=== PATIENT | female | born 1990 | race Caucasian/White ===

== ENCOUNTER 2020-12-14 11:51 | Inpatient (IN) | payer OTHER ==
[2020-12-14] MEDS ORDERED: Sodium Chloride 0.9% 10 ML Syringe FLUSH PRN (12:58)
[2020-12-14] MEDS ORDERED: Lactated Ringers 500 ML IV ONE (12:58)
[2020-12-14] MEDS ORDERED: Lactated Ringers 1,000 ML IV ONE (13:00)
--- NOTE | 2020-12-14 14:13 | PCM.LDHP ---
L&D History of Present Illness - General Date of Service: 12/14/20 Admit Problem/Dx: Patient Status Order with Admit Dx/Problem 12/14/20 12:58 Patient Status [ADT] Routine Admission Diagnosis/Problem Admission Diagnosis/Problem Term Source of Information: Patient History Limitations: Reports: No Limitations - History of Present Illness Introduction:: 12/14/20 Patient is a 30 yo [id number] at 37 2/7 weeks in active labor. She is here visiting and usually doctors in [place], [place]. Her PEBBLES is 01/02/21. Her has been complicated due to a bicornate uterus and diet controlled GDM. Her first baby was due to breech presentation, second baby was an unexplained stillbirth at 24 weeks, and then this current which has for the most part gone well. She has O negative blood type and received rhogam around 28 weeks. She is HIV/hep B/RPR/GBS all negative. We have not yet received records but according to her [facility] account we have gone over some results. SVE shows /3, baby is transverse baby's head to maternal left. Membranes intact. Her is driving from [facility] and will be here around 1600 so we are trying to wait to do her repeat until he gets here. If she progresses she understands she will need to go sooner. OR staff is aware. Timing/Duration: Reports: minutes: (2-5) Location, : Reports: Abdomen Severity: Moderate Pain Score: 5 Improves with: Reports: None Worsens with: Reports: None Associated Symptoms: Denies: vaginal bleeding, vaginal fluid - Related Data Allergies/Adverse Reactions: Allergies Allergy/AdvReac Type Severity Reaction Status Date / Time No Known Allergies Allergy Verified 12/14/20 12:25 Home Medications: Home Meds Aspirin [Halfprin] 1 tab PO DAILY 12/14/20 [History] Citalopram [Citalopram HBr] 1 tab PO DAILY 12/14/20 [History] Docusate Sodium [Colace] 1 tab PO DAILY 12/14/20 [History] Iron 1 tab PO DAILY 12/14/20 [History] No122/Iron/Folic Acid [ Multi Tablet] 1 tab PO DAILY 12/14/20 [History] 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: : 3 Para: 1 LMP (Approximate): Psychiatric History: Reports: Anxiety Hematologic History: Reports: Iron Deficiency - Infectious Disease History Infectious Disease History: Reports: Chicken Pox - Past Surgical History Other HEENT Surgeries/Procedures: wisdom teeth Social & Family History - Family History Family Medical History: No Pertinent Family History - Tobacco Use Tobacco Use Status *Q: Never Tobacco User Second Hand Smoke Exposure: No - Caffeine Use Caffeine Use: Reports: Coffee - Recreational Drug Use Recreational Drug Use: No H&P Review of Systems - Review of Systems: Review Of Systems: See Below General: Reports: No Symptoms HEENT: Reports: No Symptoms Pulmonary: Reports: No Symptoms Cardiovascular: Reports: No Symptoms Gastrointestinal: Reports: No Symptoms Genitourinary: Reports: No Symptoms Musculoskeletal: Reports: No Symptoms Skin: Reports: No Symptoms Psychiatric: Reports: No Symptoms Neurological: Reports: No Symptoms Hematologic/Lymphatic: Reports: No Symptoms Immunologic: Reports: No Symptoms L&D Exam - Exam Exam: See Below - Vital Signs Weight: 80.739 kg - OB Specific Contraction Intensity: Strong Movement: Active Heart Tones: Present Heart Rate (FHR) Variability: Moderate (6-25 bpm) Presentation: Transverse - Exam General: Alert, Oriented HEENT: PERRLA, Posterior Pharynx Clear, Pupils Equal, Pupils Reactive Neck: Supple, Trachea Midline Lungs: Clear to Auscultation, Normal Respiratory Effort Cardiovascular: Regular Rate, Regular Rhythm GI/Abdominal Exam: Normal Bowel Sounds, Soft Genitourinary: Normal external exam, Cervical dilitation, Enlarged uterus Back Exam: Normal Inspection, Full Range of Motion Extremities: Normal Inspection, No Pedal Edema Skin: Warm, Dry, Intact Neurological: Cranial Nerves Intact, Reflexes Equal Bilateral Psychiatric: Alert, Normal Affect, Normal Mood - Patient Data Lab Results Last 24 hrs: Laboratory Results - last 24 hr 12/14/20 12/14/20 12/14/20 Range/Units 12:07 12:58 13:17 WBC 7.8 (4.5-11.0) K/uL RBC 3.93 (3.30-5.50) M/uL Hgb 11.9 L (12.0-15.0) g/dL Hct 35.1 L (36.0-48.0) % MCV 89 (80-98) fL MCH 30 (27-31) pg MCHC 34 (32-36) % Plt Count 217 (150-400) K/uL Urine Color Yellow (YELLOW) Urine Appearance Cloudy A (CLEAR) Urine pH 7.0 (5.0-8.0) Ur Specific Pray 1.025 (1.008-1.030) Urine Protein Trace H (NEGATIVE) mg/dL Urine Glucose (UA) Negative (NEGATIVE) mg/dL Urine Ketones Negative (NEGATIVE) mg/dL Urine Occult Blood Small H (NEGATIVE) Urine Nitrite Negative (NEGATIVE) Urine Bilirubin Negative (NEGATIVE) Urine Urobilinogen 1.0 (0.2-1.0) EU/dL Ur Leukocyte Esterase Trace H (NEGATIVE) Urine RBC 0-5 (0-5) Urine WBC 0-5 (0-5) Ur Epithelial Cells Many Amorphous Sediment Rare Urine Bacteria Many Urine Mucus Few Urine Opiates Screen Negative (NEGATIVE) Ur Oxycodone Screen Negative (NEGATIVE) Urine Methadone Screen Negative (NEGATIVE) Ur Propoxyphene Screen Negative (NEGATIVE) Ur Barbiturates Screen Negative (NEGATIVE) Ur Tricyclics Screen Negative (NEGATIVE) Ur Phencyclidine Scrn Negative (NEGATIVE) Ur Amphetamine Screen Negative (NEGATIVE) U Methamphetamines Scrn Negative (NEGATIVE) Urine MDMA Screen Negative (NEGATIVE) U Benzodiazepines Scrn Negative (NEGATIVE) U Cocaine Metab Screen Negative (NEGATIVE) U Marijuana (THC) Screen Negative (NEGATIVE) Blood Type Gel Antibody Screen 12/14/20 Range/Units 13:17 WBC (4.5-11.0) K/uL RBC (3.30-5.50) M/uL Hgb (12.0-15.0) g/dL Hct (36.0-48.0) % MCV (80-98) fL MCH (27-31) pg MCHC (32-36) % Plt Count (150-400) K/uL Urine Color (YELLOW) Urine Appearance (CLEAR) Urine pH (5.0-8.0) Ur Specific Pray (1.008-1.030) Urine Protein (NEGATIVE) mg/dL Urine Glucose (UA) (NEGATIVE) mg/dL Urine Ketones (NEGATIVE) mg/dL Urine Occult Blood (NEGATIVE) Urine Nitrite (NEGATIVE) Urine Bilirubin (NEGATIVE) Urine Urobilinogen (0.2-1.0) EU/dL Ur Leukocyte Esterase (NEGATIVE) Urine RBC (0-5) Urine WBC (0-5) Ur Epithelial Cells Amorphous Sediment Urine Bacteria Urine Mucus Urine Opiates Screen (NEGATIVE) Ur Oxycodone Screen (NEGATIVE) Urine Methadone Screen (NEGATIVE) Ur Propoxyphene Screen (NEGATIVE) Ur Barbiturates Screen (NEGATIVE) Ur Tricyclics Screen (NEGATIVE) Ur Phencyclidine Scrn (NEGATIVE) Ur Amphetamine Screen (NEGATIVE) U Methamphetamines Scrn (NEGATIVE) Urine MDMA Screen (NEGATIVE) U Benzodiazepines Scrn (NEGATIVE) U Cocaine Metab Screen (NEGATIVE) U Marijuana (THC) Screen (NEGATIVE) Blood Type O NEGATIVE Gel Antibody Screen Negative Result Diagrams: 12/14/20 13:17 - Problem List (1) Active labor at term SNOMED Code(s): 71526679 ICD Code: WKX6602 - Status: Acute Current Visit: Yes (2) History of delivery SNOMED Code(s): 298987853 ICD Code: Z98.891 - HISTORY OF UTERINE SCAR FROM PREVIOUS SURGERY Status: Acute Current Visit: Yes (3) Bicornate uterus SNOMED Code(s): 30694632 ICD Code: Q51.3 - BICORNATE UTERUS Status: Acute Current Visit: Yes Problem List Initiated/Reviewed/Updated: Yes Orders Last 24hrs: Active Orders 24 hr Category Date Time Status Patient Status [ADT] Routine ADT 12/14/20 12:58 Active Communication Order [RC] ASDIRECTED Care 12/14/20 12:58 Active Heart Tones [RC] PER UNIT ROUTINE Care 12/14/20 12:58 Active Notify Provider Vital Signs [RC] PRN Care 12/14/20 12:59 Active Notify Provider [RC] PRN Care 12/14/20 12:58 Active OB Check [OM.PC] Click to Edit Care 12/14/20 11:59 Ordered Up ad Marly [RC] ASDIRECTED Care 12/14/20 12:58 Active VTE/DVT Education [RC] Click to Edit Care 12/14/20 13:00 Active Vital Signs [RC] PER UNIT ROUTINE Care 12/14/20 12:58 Active Nothing Per Oral Diet [DIET] Diet 12/14/20 Lunch Active CORONAVIRUS COVID-19 YUNG [MOLEC] Routine Lab 12/14/20 13:18 Received PATIENT RETYPE [BBK] Routine Lab 12/14/20 13:17 Results TYPE AND SCREEN [BBK] Routine Lab 12/14/20 13:17 Results Sodium Chloride 0.9% [Saline Flush] Med 12/14/20 12:58 Active 10 ml FLUSH ASDIRECTED PRN DVT/VTE Prophylaxis Reflex [OM.PC] Routine Oth 12/14/20 12:58 Ordered Saline Lock Insert [OM.PC] Routine Oth 12/14/20 12:58 Ordered Resuscitation Status Routine Resus Stat 12/14/20 12:58 Ordered Medication Orders Sodium Chloride (Sodium Chloride 0.9% 10 Ml Syringe) 10 ml FLUSH ASDIRECTED PRN PRN Reason: Keep Vein Open Assessment/Plan Comment:: 12/14/20 Assessment: [id number] here at 37 2/7 weeks gestation in active labor A1GDM bicornate uterus GBS negative O negative blood type transverse baby Plan: Trying to await husbands arrival for delivery. Planning repeat section at [id number] today unless patient progresses before that, baby is transverse so the head is not pushing on her cervix although her contractions are very strong.
[2020-12-14] MEDS ORDERED: ePHEDrine 50 MG/ML SDV ONE (14:22)
[2020-12-14] MEDS ORDERED: Phenylephrine 1% 10 MG/ML SDV ONE (14:22)
[2020-12-14] MEDS ORDERED: Ondansetron 4 MG/2 ML SDV ONE (14:22)
[2020-12-14] MEDS ORDERED: Oxytocin 10 Units/1 ML SDV ONE ×2 (14:22→14:23)
[2020-12-14] MEDS ORDERED: Sodium Chloride 0.9% 20 ML ONE (14:22)
[2020-12-14] MEDS ORDERED: fentaNYL 100 MCG/2 ML SDV IVPUSH ONE (15:22)
[2020-12-14] MEDS ORDERED: Sodium Chloride 0.9% 10 ML ONE (17:11)
[2020-12-14] MEDS ORDERED: ceFAZolin 1 GM Vial ONE (17:11)
[2020-12-14] MEDS ORDERED: ePHEDrine 50 MG/ML SDV IVPUSH PRN (17:38)
[2020-12-14] MEDS ORDERED: Witch Hazel Medicated Pads 100/Jar TOP ONE (17:38)
[2020-12-14] MEDS ORDERED: Lanolin 100% Cream 40 GM Tube TOP ONE (17:38)
[2020-12-14] MEDS ORDERED: Naloxone 0.4 MG/ML SDV IVPUSH PRN (17:38)
[2020-12-14] MEDS ORDERED: diphenhydrAMINE 50 MG/ML SDV IVPUSH PRN (17:38)
[2020-12-14] MEDS ORDERED: Ondansetron 4 MG Tab.DIS PO PRN (17:38)
[2020-12-14] MEDS ORDERED: Benzocaine 20% Top Spray 56 GM Bottle TOP ONE (17:38)
[2020-12-14] MEDS ORDERED: Bisacodyl 10 MG Supp RECTAL PRN (17:38)
[2020-12-14] MEDS: Acetaminophen/HYDROcodone 325-5 MG Tab PO PRN ×2 (18:37→22:20)
[2020-12-14] MEDS: fentaNYL 100 MCG/2 ML SDV IVPUSH PRN ×2 (18:45→22:32)
[2020-12-14] MEDS ORDERED: Ketorolac 30 MG/ML SDV IVPUSH ONE (18:45)
[2020-12-14] MEDS ORDERED: Lactated Ringers 1,000 ML IV SCH (19:00)
[2020-12-14] MEDS ORDERED: Lanolin 100% Cream 40 GM Tube TOP PRN (20:40)
[2020-12-14] MEDS ORDERED: Witch Hazel Medicated Pads 100/Jar TOP PRN (20:53)
[2020-12-15] MEDS: fentaNYL 100 MCG/2 ML SDV IVPUSH PRN ×7 (00:22→18:19)
[2020-12-15] MEDS: Ibuprofen 800 MG Tab PO PRN ×3 (01:47→17:38)
[2020-12-15] MEDS: Acetaminophen/HYDROcodone 325-5 MG Tab PO PRN ×5 (02:47→20:21)
[2020-12-15] MEDS ORDERED: Benzocaine 20% Top Spray 56 GM Bottle TOP PRN (07:43)
--- NOTE | 2020-12-15 07:52 | OR ---
DATE OF PROCEDURE: 12/14/2020 SURGEON: Tyler Srinivasan MD PREOPERATIVE DIAGNOSIS: Failure to advance/history of . POSTOPERATIVE DIAGNOSIS: Failure to advance/history of . PROCEDURE: section with aftercare. TIMEKEEPING SUPERVISOR: Lizbet Santiago CNM. COMPLICATIONS: None. ANESTHETIC: Spinal. RISKS: Risks, benefits, alternatives, and limitations including but not limited to infection, bleeding, injury to abdominal structures, bowel, bladder, baby, chronic wounds and chronic pain were all explained to the patient and they wished to proceed. PROCEDURE IN DETAIL: The patient was placed in supine position. The previous Pfannenstiel type incision was opened with a 15 blade. This was carried down with electrocautery to and through the fascia. The linea alba was then opened sharply with Metzenbaum scissors. Muscle-spreading technique was used once the peritoneum was entered. Uterus was readily identified. This was noticed to be large and bicornuate. This was then opened bluntly. There was also some anterior placenta noted. The baby was known to be transverse in the bicornuate uterus with the head in the left upper quadrant. One arm was behind the head and the second arm was between the legs from the back. The baby was delivered with mild difficulty. The cord was clamped and subsequently cut. The placenta was then removed without difficulty. Pitocin was given. The uterus inspected for bleeding. It was controlled with direct pressure. The uterus was closed then with 3 layers of #1 Vicryl running suture x3. The abdomen was irrigated. Of note, the uterus closure with #1 suture in a running locked fashion. The abdomen is irrigated. Rectus muscles were reapproximated using 3-0 Vicryl suture. Fascia was closed with #1 Vicryl in a running suture x2. Subcutaneous tissues were closed with 3-0 Vicryl. Skin was closed with 4-0 Vicryl. The patient tolerated the procedure well. Tyler Srinivasan MD /[id number]
[2020-12-15] MEDS: Prenatal Multivitamin with Calcium/Folic Acid/Iron Tab PO SCH (09:34)
--- NOTE | 2020-12-15 10:35 | PN ---
DATE OF SERVICE: 12/15/2020 SUBJECTIVE: The patient is doing very well. Pain is controlled, although she is still having issues with pain. We both feel the pain adequate. No nausea, vomiting, shortness of breath, or chest pain. OBJECTIVE: VITAL SIGNS: Stable. CARDIOVASCULAR: Regular rhythm and rate. SKIN: Incision healing well. ASSESSMENT: Status post . PLAN: The patient will continue to work on diet and activity today. We will discontinue Schumacher catheter and she is okay to shower. Tyler Srinivasan MD /[id number]
[2020-12-15] MEDS: Simethicone 80 MG Tab.Chew PO PRN (20:21)
[2020-12-16] MEDS: Acetaminophen/HYDROcodone 325-5 MG Tab PO PRN ×5 (00:13→16:17)
[2020-12-16] MEDS: Ibuprofen 800 MG Tab PO PRN ×2 (04:12→12:18)
[2020-12-16] MEDS ORDERED: Docusate Sodium 100 MG Cap PO PRN (07:56)
[2020-12-16] MEDS ORDERED: Bisacodyl 5 MG Tab PO PRN (07:56)
[2020-12-16] MEDS ORDERED: Sennosides 8.6 MG Tab PO PRN (07:56)
[2020-12-16] MEDS: Simethicone 80 MG Tab.Chew PO PRN ×2 (07:57→12:18)
[2020-12-16] MEDS: Prenatal Multivitamin with Calcium/Folic Acid/Iron Tab PO SCH (08:13)
--- NOTE | 2020-12-16 09:12 | PCM.PNPP ---
- General Info Date of Service: 12/16/20 Functional Status: Reports: Pain Controlled, Tolerating Diet, Ambulating, Urinating - Review of Systems General: Reports: No Symptoms HEENT: Reports: No Symptoms Pulmonary: Reports: No Symptoms Cardiovascular: Reports: No Symptoms Gastrointestinal: Reports: Abdominal Pain (mild cramping), Other (No BM yet, not passing gas yet, BS present) Genitourinary: Reports: No Symptoms Musculoskeletal: Reports: No Symptoms Skin: Reports: No Symptoms Neurological: Reports: No Symptoms Psychiatric: Reports: No Symptoms - General Info Date of Service: 12/16/20 - Patient Data Vital Signs - Most Recent: Last Vital Signs Temp 97 F 12/16/20 07:50 Pulse 95 12/16/20 07:50 Resp 16 12/16/20 07:50 BP 107/66 12/16/20 07:50 Pulse Ox 95 12/16/20 07:50 Weight - Most Recent: 177 lb 15.984 oz Lab Results - Last 24 Hours: Laboratory Results - last 24 hr 12/14/20 Range/Units 21:31 Screen Negative Med Orders - Current: Current Medications Hydrocodone Bitart/Acetaminophen (Acetaminophen/Hydrocodone 325-5 Mg Tab) 1 tab PO Q4H PRN PRN Reason: Pain (moderate 4-6) Last Admin: 12/16/20 08:12 Dose: 1 tab Documented by: Benzocaine (Benzocaine 20% Top [place] 56 Gm Bottle) 0 gm TOP Q4H PRN PRN Reason: perianal area Bisacodyl (Bisacodyl 10 Mg Supp) 10 mg RECTAL BID PRN PRN Reason: Constipation Bisacodyl (Bisacodyl 5 Mg Tab) 5 mg PO Q12H PRN PRN Reason: Constipation Last Admin: 12/16/20 08:13 Dose: 5 mg Documented by: Diphenhydramine HCl (Diphenhydramine 50 Mg/Ml Sdv) 25 mg IVPUSH Q6H PRN PRN Reason: Itching or Nausea Docusate Sodium (Docusate Sodium 100 Mg Cap) 100 mg PO Q12H PRN PRN Reason: Constipation Last Admin: 12/16/20 08:13 Dose: 100 mg Documented by: Emollient Ointment (Lanolin 100% Cream 40 Gm Tube) 0 gm TOP ASDIRECTED PRN PRN Reason: apply topically to nipples Last Admin: 12/14/20 20:59 Dose: 1 applic Documented by: Fentanyl (Fentanyl 100 Mcg/2 Ml Sdv) 10 - 30 mcg IVPUSH Q1H PRN PRN Reason: Pain (severe 7-10) Last Admin: 12/15/20 18:19 Dose: 30 mcg Documented by: Lactated Ringer's (Ringers, Lactated) 1,000 mls @ 125 mls/hr IV ASDIRECTED [facility] Last Admin: 12/14/20 19:51 Dose: 125 mls/hr Documented by: Ibuprofen (Ibuprofen 800 Mg Tab) 800 mg PO Q8H PRN PRN Reason: mild pain or fever Last Admin: 12/16/20 04:12 Dose: 800 mg Documented by: Magnesium Hydroxide (Magnesium Hydroxide 400 Mg/5 Ml Susp 30 Ml Cup) 30 ml PO Q6H PRN PRN Reason: Constipation Naloxone HCl (Naloxone 0.4 Mg/Ml Sdv) 0.1 mg IVPUSH ASDIRECTED PRN PRN Reason: Respiratory Depression Ondansetron HCl (Ondansetron 4 Mg Tab.Dis) 8 mg PO Q6H PRN PRN Reason: Nausea/Vomiting Prenat Multivit/Heating Unit Installer/Iron/Folic Ac ( Multivitamin With Calcium/Folic Acid/Iron Tab) 1 each PO DAILY [facility] Last Admin: 12/16/20 08:13 Dose: 1 each Documented by: Senna (Sennosides 8.6 Mg Tab) 8.6 mg PO Q12H PRN PRN Reason: Constipation Simethicone (Simethicone 80 Mg Tab.Chew) 80 mg PO Q4H PRN PRN Reason: Gas Last Admin: 12/16/20 07:57 Dose: 80 mg Documented by: Sodium Chloride (Sodium Chloride 0.9% 10 Ml Syringe) 10 ml FLUSH ASDIRECTED PRN PRN Reason: Keep Vein Open Witch Jordyn (Witch Jordyn Medicated Pads 100/Jar) 1 pad TOP ASDIRECTED PRN PRN Reason: Hemorrhoids Last Admin: 12/14/20 21:00 Dose: 1 applic Documented by: Discontinued Medications Benzocaine (Benzocaine 20% Top [place] 56 Gm Bottle) 0 gm TOP Q4H ONE Stop: 12/14/20 17:39 Last Admin: 12/14/20 20:30 Dose: Not Given Documented by: Cefazolin Sodium (Cefazolin 1 Gm Vial) Confirm Administered Dose 2 gm .ROUTE .STK-MED ONE Stop: 12/14/20 17:12 Emollient Ointment (Lanolin 100% Cream 40 Gm Tube) 40 gm TOP ASDIRECTED ONE Stop: 12/14/20 17:39 Last Admin: 12/15/20 00:31 Dose: Not Given Documented by: Ephedrine Sulfate (Ephedrine 50 Mg/Ml Sdv) Confirm Administered Dose 50 mg .ROUTE .STK-MED ONE Stop: 12/14/20 14:23 Ephedrine Sulfate (Ephedrine 50 Mg/Ml Sdv) 5 mg IVPUSH ASDIRECTED PRN PRN Reason: Other Fentanyl (Fentanyl 100 Mcg/2 Ml Sdv) 50 mcg IVPUSH ONETIME ONE Stop: 12/14/20 15:23 Last Admin: 12/14/20 23:36 Dose: Not Given Documented by: Lactated Ringer's (Ringers, Lactated) 500 mls @ 500 mls/hr IV .BOLUS ONE Stop: 12/14/20 13:57 Last Admin: 12/14/20 15:48 Dose: 500 mls/hr Documented by: Sodium Chloride (Normal Saline) Confirm Administered Dose 20 mls @ as directed .ROUTE .STK-MED ONE Stop: 12/14/20 14:23 Lactated Ringer's (Ringers, Lactated) 1,000 mls @ 999 mls/hr IV BOLUS ONE Stop: 12/14/20 14:00 Last Admin: 12/14/20 14:00 Dose: 999 mls/hr Documented by: Sodium Chloride (Normal Saline) Confirm Administered Dose 10 mls @ as directed .ROUTE .STK-MED ONE Stop: 12/14/20 17:12 Ketorolac Tromethamine (Ketorolac 30 Mg/Ml Sdv) 30 mg IVPUSH ONETIME ONE Stop: 12/14/20 18:46 Last Admin: 12/14/20 18:56 Dose: 30 mg Documented by: Ondansetron HCl (Ondansetron 4 Mg/2 Ml Sdv) Confirm Administered Dose 4 mg .ROUTE .STK-MED ONE Stop: 12/14/20 14:23 Oxytocin (Oxytocin 10 Units/1 Ml Sdv) Confirm Administered Dose 20 unit .ROUTE .STK-MED ONE Stop: 12/14/20 14:23 Oxytocin (Oxytocin 10 Units/1 Ml Sdv) Confirm Administered Dose 10 unit .ROUTE .STK-MED ONE Stop: 12/14/20 14:24 Last Admin: 12/14/20 17:00 Dose: 10 unit Documented by: Phenylephrine HCl (Phenylephrine 1% 10 Mg/Ml Sdv) Confirm Administered Dose 10 mg .ROUTE .STK-MED ONE Stop: 12/14/20 14:23 Witch Jordyn (Witch Jordyn Medicated Pads 100/Jar) 1 pad TOP ASDIRECTED ONE Stop: 12/14/20 17:39 Last Admin: 12/15/20 00:31 Dose: Not Given Documented by: - Infant Interaction Disposition, : [place] in Room with Family Infant Interaction: Holding Infant Feeding: Breastfed Infant; Nursed Well Support Person: , Friend - Recovery Exam Fundal Tone: Firm Fundal Level: 1 Fingerbreadths Below Umbilicus Fundal Placement: Midline Lochia Amount: Small Lochia Color: Rubra/Red Perineum Description: Intact, Minimal Bruising/Swelling Episiotomy/Laceration: None Bladder Status: Voiding Urinary Elimination: Voided - Exam General: Alert, Oriented HEENT: Pupils Equal, Pupils Reactive, EOMI, Mucous Membr. Moist/[place] Neck: Supple Lungs: Clear to Auscultation, Normal Respiratory Effort Cardiovascular: Regular Rate, Regular Rhythm GI/Abdominal Exam: Normal Bowel Sounds, Soft Extremities: No Pedal Edema, Normal Capillary Refill Skin: Warm Wound/Incisions: Healing Well Neurological: No New Focal Deficit Psy/Mental Status: Alert, Normal Affect, Normal Mood - Problem List & Annotations (1) Status post SNOMED Code(s): 991704929, 043027800 Code(s): Z98.891 - HISTORY OF UTERINE SCAR FROM PREVIOUS SURGERY Status: Acute Current Visit: Yes (2) History of delivery SNOMED Code(s): 895106491 Code(s): Z98.891 - HISTORY OF UTERINE SCAR FROM PREVIOUS SURGERY Status: Acute Current Visit: Yes (3) Bicornate uterus SNOMED Code(s): 13604027 Code(s): Q51.3 - BICORNATE UTERUS Status: Acute Current Visit: Yes - Problem List Review Problem List Initiated/Reviewed/Updated: Yes - Assessment Assessment:: 12/16/20 S/P repeat C section for breech at 37 plus weeks Doing well up and about, voiding, No BM yet Had breakfast this morning without problem May go home this PM if has BM, if not tomorrow AM - Plan Plan:: 12/14/20 Assessment: [id number] here at 37 2/7 weeks gestation in active labor A1GDM bicornate uterus GBS negative O negative blood type transverse baby Plan: Trying to await husbands arrival for delivery. Planning repeat section at [phone] today unless patient progresses before that, baby is transverse so the head is not pushing on her cervix although her contractions are very strong. 12/16/20 Had Rhogam no problems with Up and active, walking Incision healing well plan to see Surgeon here if at cabin next week. If not to see regular OB provider in the [facility]. home this PM
[2020-12-16] MEDS: Magnesium Hydroxide 400 MG/5 ML Susp 30 ML Cup PO PRN ×2 (13:37→16:16)
== END 2020-12-16 17:00 | disposition home or self-care (01) | DRG 788 ==
LOC: JP.OBCHECK 11:51 → JP.OB 11:54 → JP.OBCHECK 12:58 → OBSVTOIN 17:07 → JP.MS 20:25
PROVIDERS: ADMIT Advanced Practice Midwife; ATTEND Advanced Practice Midwife
PROC: 10D00Z1 Extraction of Products of Conception, Low, Open Approach (ICD-10-PCS; principal; 2020-12-14)
DX: O32.1XX0 Maternal care for breech presentation, not applicable or unspecified (principal); O99.344 Other mental disorders complicating childbirth; F41.9 Anxiety disorder, unspecified; O99.284 Endocrine, nutritional and metabolic diseases complicating childbirth; E61.1 Iron deficiency; Z37.0 Single live birth; O34.03 Maternal care for unspecified congenital malformation of uterus, third trimester; Q51.3 Bicornate uterus; O24.420 Gestational diabetes mellitus in childbirth, diet controlled; O34.211 Maternal care for low transverse scar from previous cesarean delivery; Z20.822 Contact with and (suspected) exposure to COVID-19; Z3A.37 37 weeks gestation of pregnancy
CPT/HCPCS: 36415; 80048; 80305-QW; 81001; 85025; 85027; 85460; 86850; 86900; 86901; 88307; 99211; A9270-GY; J0690; J1885; J2370; J2405; J2590; J2790; J3010; J7120; U0002